=== PATIENT | female | born 1980 | race Caucasian/White ===

== ENCOUNTER 2019-03-09 08:43 | Emergency (ER) | payer OTHER ==
[~2019-03-09] VITALS: Ht 157.5 cm; Wt 104.3 kg
[~2019-03-09 08:43] MED LIST: HYDROCODON-ACE1 EAC7 PO; LOPERAMIDE 2 MG2 M1 PO; NORCO 5-325 TA1 EACH PO; ZOFRAN ODT4 MG PO; ZOFRAN4 MG PO
[2019-03-09] MEDS ORDERED: PREDNISONE 20 M20 M1 PO (09:36)
[2019-03-09] MEDS ORDERED: ZPAK PO (09:36)
[2019-03-09] MEDS ORDERED: TESSALON PERLE100 MG PO (09:36)
[2019-03-09] MEDS ORDERED: VENTOLIN HFA 1818 GM INH (09:46)
[2019-03-09 09:48] VITALS: BP 132/70
== END 2019-03-09 09:48 | disposition home or self-care (01) ==
LOC: M.ERS 08:43
DX: J40 Bronchitis, not specified as acute or chronic (principal); F17.210 Nicotine dependence, cigarettes, uncomplicated

== ENCOUNTER 2019-07-05 12:05 | Emergency (ER) | payer OTHER ==
[~2019-07-05] VITALS: Ht 157.5 cm; Wt 108.9 kg
[~2019-07-05 12:05] MED LIST changes: +PREDNISONE 20 M20 M1 PO; +TESSALON PERLE100 MG PO; +VENTOLIN HFA 1818 GM INH; +ZPAK PO
[2019-07-05 12:24] LABS: URINE BILIRUBIN NEGATIVE (Negative); URINE BLOOD TRACE (Negative); URINE CLARITY CLEAR; URINE COLOR YELLOW; URINE GLUCOSE-RANDOM NEGATIVE (Negative); URINE KETONES NEGATIVE (Negative); URINE LEUKOCYTES-REFLEX NEGATIVE (Negative); URINE NITRITE-REFLEX NEGATIVE (Negative); URINE PROTEIN NEGATIVE (Negative); URINE SPECIFIC GRAVITY >= 1.030 (1.005-1.030); URINE UROBILINOGEN 0.2 E.U./dl (0.2-1.0)
[2019-07-05] MEDS ORDERED: TYLENOL WITH CO1 TA1 PO ×2 (14:24→14:57)
[2019-07-05] MEDS ORDERED: NAPROSYN500 MG PO ×2 (14:25→14:57)
[2019-07-05 15:12] VITALS: BP 125/80
== END 2019-07-05 15:15 | disposition home or self-care (01) ==
LOC: M.ERS 12:05
PROVIDERS: Physician Assistant
DX: N83.201 Unspecified ovarian cyst, right side (principal); G89.29 Other chronic pain; F17.210 Nicotine dependence, cigarettes, uncomplicated; R11.0 Nausea; N89.8 Other specified noninflammatory disorders of vagina

== ENCOUNTER 2019-12-11 23:36 | Emergency (ER) | payer OTHER ==
[~2019-12-11] VITALS: Ht 154.9 cm; Wt 113.4 kg
[~2019-12-11 23:36] MED LIST changes: +NAPROSYN500 MG PO; +TYLENOL WITH CO1 TA1 PO
[2019-12-11] MEDS ORDERED: VENTOLIN HFA INH8 GM INH (23:45)
[2019-12-12 00:16] LABS: ABSOLUTE BASOPHILS 0.1 thou/uL (0.0-0.2); ABSOLUTE EOSINOPHILS 0.2 thou/uL (0.0-0.7); ABSOLUTE LYMPHOCYTES 3.4 thou/uL (0.8-5.3); ABSOLUTE MONOCYTES 0.7 thou/uL (0.0-1.2); ABSOLUTE NEUTROPHILS 5.5 thou/uL (1.6-8.1); BASOPHILS 0.9 %; HEMATOCRIT 43.6 % (37.0-47.0); HEMOGLOBIN 15.3 gm/dL (12.0-15.0); LYMPHOCYTES 34.5 %; MCH 31.5 pg (26.0-34.0); MCV 89.8 fL (80.0-100.0); MPV 7.5 fl. (7.2-11.1); NUCLEATED RBCS 0 /100WBC; PLATELET COUNT* 305 thou/uL (150-400); POLYS 55.6 %; RBC 4.86 mil/uL (4.20-5.00); RDW-CV 13.4 % (10.5-14.5); WBC 9.9 thou/uL (4.0-11.0)
[2019-12-12 00:26] LABS: CALCIUM 8.1 mg/dL (8.5-10.1); CREATININE 0.7 mg/dL (0.6-1.3); POTASSIUM 3.8 mmol/L (3.5-5.1)
[2019-12-12 00:29] LABS: PROTIME 10.3 Seconds (9.20-11.50)
[2019-12-12 00:37] LABS: ALBUMIN 3.5 g/dL (3.4-5.0); MAGNESIUM 2.1 mg/dL (1.8-2.4); TOTAL BILIRUBIN 0.2 mg/dL (<0.1-1.0); TOTAL PROTEIN 7.3 g/dL (6.4-8.2)
[2019-12-12 01:08] LABS: URINE BILIRUBIN NEGATIVE (Negative); URINE BLOOD 3+ (Negative); URINE CLARITY CLEAR; URINE GLUCOSE-RANDOM NEGATIVE (Negative); URINE KETONES NEGATIVE (Negative); URINE LEUKOCYTES-REFLEX TRACE (Negative); URINE NITRITE-REFLEX NEGATIVE (Negative); URINE PROTEIN NEGATIVE (Negative); URINE SPECIFIC GRAVITY 1.025 (1.005-1.030); URINE UROBILINOGEN 0.2 E.U./dl (0.2-1.0)
[2019-12-12 01:43] LABS: URINE COLOR PINK
[2019-12-12 01:44] LABS: CASTS None Seen /LPF (None Seen); SQUAMOUS 0-3 Few /LPF (0-3)
[2019-12-12 01:45] LABS: BACTERIA-REFLEX 1-9 Few /HPF (None Seen); CRYSTALS None Seen /LPF (None Seen); URINE RBC >20 Many /HPF (0-2); URINE WBC-REFLEX None Seen /HPF (0-5)
[2019-12-12] MEDS ORDERED: ADVAIR 250-501 EACH INH (02:23)
[2019-12-12] MEDS ORDERED: PROAIR HFA8.5 GM INH (02:23)
[2019-12-12 02:39] VITALS: BP 112/66
--- NOTE | 2019-12-12 13:18 | EKG ---
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: : 1980 Requested By: Madiha Cardozo Order Number: [id number] MD: Blas Correa Measurements Intervals [place] Rate: 91 P: 71 MA: 182 QRS: -10 QRSD: 95 T: 59 QT: 354 QTc: 436 Interpretive Statements Sinus rhythm Possible inferior infarct, old Baseline wander in lead(s) V1,V6 No previous ECG available for comparison Electronically Signed On 12-12-2019 13:18:16 CDT by Blas Correa [email or web address] <ELECTRONICALLY SIGNED> By: Blas Correa MD, [facility] 12/12/19 1318 2341 [id number] Blas Correa MD, [facility] /EPI
== END 2019-12-12 02:39 | disposition home or self-care (01) ==
LOC: M.ERS 23:36
PROVIDERS: Emergency Medicine
DX: R07.89 Other chest pain (principal); F17.210 Nicotine dependence, cigarettes, uncomplicated; Z90.721 Acquired absence of ovaries, unilateral; Z90.49 Acquired absence of other specified parts of digestive tract

== ENCOUNTER 2019-12-26 16:08 | Observation (INO) | payer BC ==
[~2019-12-26] VITALS: Ht 157.5 cm; Wt 97.5 kg
[~2019-12-26 16:08] MED LIST changes: +ADVAIR 250-501 EACH INH; +PROAIR HFA8.5 GM INH
[2019-12-26 16:13] VITALS: BP 128/73
[2019-12-26 16:57] LABS: ABSOLUTE BASOPHILS 0.1 thou/uL (0.0-0.2); ABSOLUTE EOSINOPHILS 0.1 thou/uL (0.0-0.7); ABSOLUTE LYMPHOCYTES 2.5 thou/uL (0.8-5.3); ABSOLUTE MONOCYTES 0.6 thou/uL (0.0-1.2); ABSOLUTE NEUTROPHILS 7.9 thou/uL (1.6-8.1); BASOPHILS 0.7 %; EOSINOPHILS 1.3 %; HEMATOCRIT 42.1 % (37.0-47.0); HEMOGLOBIN 14.8 gm/dL (12.0-15.0); LYMPHOCYTES 22.4 %; MCH 31.3 pg (26.0-34.0); MCHC 35.1 g/dL (28.0-37.0); MCV 89.1 fL (80.0-100.0); MONOCYTES 5.3 %; MPV 7.4 fl. (7.2-11.1); NUCLEATED RBCS 0 /100WBC; PLATELET COUNT* 293 thou/uL (150-400); POLYS 70.3 %; RBC 4.73 mil/uL (4.20-5.00); RDW-CV 13.2 % (10.5-14.5); WBC 11.3 thou/uL (4.0-11.0)
[2019-12-26 17:11] LABS: CALCIUM 8.3 mg/dL (8.5-10.1); CREATININE 0.9 mg/dL (0.6-1.3); POTASSIUM 3.4 mmol/L (3.5-5.1)
[2019-12-26 17:21] LABS: ALBUMIN 3.5 g/dL (3.4-5.0); MAGNESIUM 1.9 mg/dL (1.8-2.4); TOTAL BILIRUBIN 0.3 mg/dL (<0.1-1.0); TOTAL PROTEIN 7.2 g/dL (6.4-8.2)
[2019-12-26 20:20] VITALS: BP 105/68
[2019-12-26 21:27] VITALS: BP 106/64
[2019-12-27] VITALS: BP 132/47
[2019-12-27 03:44] VITALS: BP 114/52
[2019-12-27 08:03] VITALS: BP 115/43
--- NOTE | 2019-12-27 09:02 | NUR ---
CM SPOKE TO THE PT TO DISUCSS HER HOME SITUATION, DISCHARGE PLANNING, AND TO INFORM OF THE ROLE OF CM. PT A&O, INDEPENDENT WITH ADL'S, ACTIVE AND WORKS. PT OWNS 0 DME. PT DOES NOT ANTICIPATE ANY D/C PLANNING NEEDS. CM WILL REMAIN AVAILABLE TO ASSIST AND FOLLOW NEEDED.
--- NOTE | 2019-12-27 09:38 | NUR ---
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
[2019-12-27] MEDS ORDERED: ASPIRIN325 PO (10:15)
[2019-12-27] MEDS ORDERED: NITROGLYCERIN0.4 MG SUBLING (10:15)
[2019-12-27] MEDS ORDERED: OMEPRAZOLE40 MG PO (10:15)
[2019-12-27] MEDS ORDERED: VENTOLIN HFA INH8 GM INH (10:29)
[2019-12-27 10:35] VITALS: BP 115/43
--- NOTE | 2019-12-27 12:36 | EKG ---
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 : 1980 Requested By: Francisco Walls Order Number: [id number] MD: Blas Correa Measurements Intervals [place] Rate: 104 P: 62 MT: 168 QRS: -4 QRSD: 97 T: 54 QT: 343 QTc: 452 Interpretive Statements Sinus tachycardia Low voltage, precordial leads Abnormal inferior Q waves Compared to ECG 12/11/2019 23:41:52 Low QRS voltage now present Sinus rate has increased Electronically Signed On 12-27-2019 12:36:29 CDT by Blas Correa [email or web address] <ELECTRONICALLY SIGNED> By: Blas Correa MD, FAC 12/27/19 1236 1616 1616 Blas Correa MD, FAC /EPI
== END 2019-12-27 12:16 | disposition home or self-care (01) ==
LOC: M.ERS 16:08 → M.2W 18:32 → M.TBA-ER 18:32 → M.2W 21:14
PROVIDERS: Emergency Medicine Emergency Medical Services; ADMIT Internal Medicine; ATTEND Internal Medicine
DX: R07.89 Other chest pain (principal); E78.5 Hyperlipidemia, unspecified; E66.9 Obesity, unspecified; F17.210 Nicotine dependence, cigarettes, uncomplicated; Z79.899 Other long term (current) drug therapy; Z20.828 Contact with and (suspected) exposure to other viral communicable diseases; Z68.39 Body mass index [BMI] 39.0-39.9, adult